=== PATIENT | female | born 1955 | race African-American/Black ===

== ENCOUNTER 2022-07-27 07:42 | Inpatient (IN) ==
[2022-07-27 08:23] LABS: Basophils % 0.3 % (0.0-0.8); Eosinophils % 0.1 % (0.00-10.9); Hematocrit 37.1 VOL% (35.7-47.0); Immature Granulocytes % 0.3 %; Immature Granulocytes Absolute 0.04 #; Lymphocytes # 1.9 10*3/uL (1.4-4.0); Lymphocytes % 16.1 % (21.3-54.2); Mean Corpuscular Volume 81.2 FL (87-102); Mean Platelet Volume 10.4 FL (9.6-12.0); Monocytes # 0.8 10*3/uL (0.11-0.8); Monocytes % 6.8 % (1.7-12.7); Neutrophils % 76.4 % (38.7-73.9); Platelet Count 283 T/CUMM (130-400); Red Blood Count 4.57 MC/CUMM (3.8-5.5); Red Cell Distribution Width 13.5 % (9.3-17.3); White Blood Count 11.6 T/CUMM (4-12)
[2022-07-27 08:37] LABS: Albumin 3.4 G/DL (3.4-5.0); Calcium 9.9 MG/DL (8.5-10.1); Osmolality,Calculated 268.1 MOS/KG (273-304); Potassium 2.8 MMOL/L (3.5-5.1); Total Protein 8.5 G/DL (6.4-8.2)
[2022-07-27 08:46] LABS: Bacteria,Urine Occasional /HPF (Few); Mucus,Urine Many /LPF (Occasional); RBC,Urine 2 /HPF (0-4); Squamous Epithelial Cell,Urine Few /HPF (0-10)
[2022-07-27 08:47] LABS: Urine Appearance Clear (Clear); Urine Color Yellow (Yellow)
[2022-07-27 08:48] LABS: Bilirubin,Urine Moderate mg/dL (Negative); Blood, Urine Small mg/dL (Negative); Glucose,Urine (UA) Negative (Negative); Ketones,Urine 40 mg/dL (Negative); Nitrite,Urine Negative (Negative); Protein,Urine 30 mg/dL (Negative)
[2022-07-27] MEDS ORDERED: POTASSIUM CHLORIDE 20 MEQ TABLET PO STA (09:02)
[2022-07-27] MEDS ORDERED: ACETAMINOPHEN 325 MG TABLET PO PRN (09:48)
[2022-07-27] MEDS ORDERED: DEXTROSE 10% 250 ML BAG IV PRN (09:48)
[2022-07-27] MEDS ORDERED: GLUCAGON 1 MG VIAL IM PRN (09:48)
[2022-07-27] MEDS ORDERED: NICOTINE 21 MG/24 HR PATCH TRANSDERM PRN (10:07)
[2022-07-27] MEDS: SODIUM CHLORIDE 0.9% 1,000 ML IV SCH (11:37)
[2022-07-27] MEDS: MAGNESIUM SULF RIDER 2 GM/50 ML PREMIX IV SCH ×2 (12:40→14:51)
[2022-07-27] MEDS ORDERED: POLYETHYLENE GLYCOL POWDER 255 GM BOTTLE PO ONE (18:00)
[2022-07-27] MEDS: ONDANSETRON 4 MG/2 ML VIAL IV PRN (21:33)
[2022-07-28] MEDS: SODIUM CHLORIDE 0.9% 1,000 ML IV SCH ×3 (02:39→18:14)
[2022-07-28] MEDS ORDERED: POLYETHYLENE GLYCOL POWDER 255 GM BOTTLE PO ONE (05:00)
[2022-07-28 06:41] LABS: Basophils % 0.3 % (0.0-0.8); Hematocrit 32.6 VOL% (35.7-47.0); Hemoglobin 11.6 GM/DL (12.0-16.0); Immature Granulocytes % 0.4 %; Immature Granulocytes Absolute 0.04 #; Lymphocytes # 1.4 10*3/uL (1.4-4.0); Lymphocytes % 12.8 % (21.3-54.2); Mean Corpuscular HGB Conc 35.6 GM/DL (32-36); Mean Corpuscular Volume 80.5 FL (87-102); Mean Platelet Volume 10.9 FL (9.6-12.0); Monocytes # 0.8 10*3/uL (0.11-0.8); Monocytes % 7.8 % (1.7-12.7); Neutrophils % 78.7 % (38.7-73.9); Platelet Count 243 T/CUMM (130-400); Red Blood Count 4.05 MC/CUMM (3.8-5.5); Red Cell Distribution Width 13.5 % (9.3-17.3); White Blood Count 10.6 T/CUMM (4-12)
[2022-07-28 06:51] LABS: INR 1.1; PT Patient Result 11.9 SECS (10.1-12.1)
[2022-07-28 07:00] LABS: Albumin 2.9 G/DL (3.4-5.0); Osmolality,Calculated 274.7 MOS/KG (273-304); Potassium 2.8 MMOL/L (3.5-5.1); Total Protein 7.7 G/DL (6.4-8.2)
[2022-07-28] MEDS: POTASSIUM CHLORIDE RIDER 10 MEQ/100 ML PREMIX IV PRN (08:24)
[2022-07-28] MEDS ORDERED: POTASSIUM CHLORIDE INJ 50 MEQ in SODIUM CHLORIDE 0.9% 500 ML IV ONE (09:00)
[2022-07-28] MEDS: PANTOPRAZOLE 40 MG TABLET PO SCH (10:04)
[2022-07-28] MEDS: LACTATED RINGERS 1,000 ML IV SCH (12:20)
[2022-07-28] MEDS ORDERED: PHENYLEPHRINE 1 MG/10 ML SYRINGE IV ONE (12:35)
[2022-07-28] MEDS ORDERED: LIDOCAINE 2% 5 ML VIAL ONE (12:35)
[2022-07-28] MEDS ORDERED: propofoL 200 MG/20 ML VIAL IV ONE (12:35)
[2022-07-28] MEDS: HYDROmorphone 1 MG/1 ML SYRINGE IV PRN (19:33)
[2022-07-28] MEDS: ONDANSETRON 4 MG/2 ML VIAL IV PRN (19:35)
[2022-07-29] MEDS: HYDROmorphone 1 MG/1 ML SYRINGE IV PRN (02:40)
[2022-07-29] MEDS: SODIUM CHLORIDE 0.9% 1,000 ML IV SCH ×2 (03:57→18:25)
[2022-07-29] MEDS: PANTOPRAZOLE 40 MG TABLET PO SCH (09:10)
[2022-07-29] MEDS: LACTATED RINGERS 1,000 ML IV SCH (16:20)
[2022-07-30] MEDS: SODIUM CHLORIDE 0.9% 1,000 ML IV SCH ×2 (00:29→07:51)
[2022-07-30 05:33] LABS: Basophils % 0.3 % (0.0-0.8); Hematocrit 29.9 VOL% (35.7-47.0); Hemoglobin 10.6 GM/DL (12.0-16.0); Immature Granulocytes % 0.5 %; Immature Granulocytes Absolute 0.06 #; Lymphocytes # 1.2 10*3/uL (1.4-4.0); Lymphocytes % 9.7 % (21.3-54.2); Mean Corpuscular HGB Conc 35.5 GM/DL (32-36); Mean Corpuscular Volume 80.8 FL (87-102); Mean Platelet Volume 10.6 FL (9.6-12.0); Monocytes # 0.9 10*3/uL (0.11-0.8); Monocytes % 7.4 % (1.7-12.7); Neutrophils % 82.1 % (38.7-73.9); Platelet Count 234 T/CUMM (130-400); Red Cell Distribution Width 13.1 % (9.3-17.3); White Blood Count 12.4 T/CUMM (4-12)
[2022-07-30 05:52] LABS: Calcium 8.8 MG/DL (8.5-10.1); Osmolality,Calculated 269.8 MOS/KG (273-304); Potassium 2.9 MMOL/L (3.5-5.1)
[2022-07-30 06:03] LABS: Albumin 2.6 G/DL (3.4-5.0); Bilirubin,Total 0.9 MG/DL (0.20-1.00); Calcium 8.6 MG/DL (8.5-10.1); Potassium 2.9 MMOL/L (3.5-5.1); Total Protein 7.1 G/DL (6.4-8.2)
[2022-07-30] MEDS: POTASSIUM CHLORIDE RIDER 10 MEQ/100 ML PREMIX IV PRN ×3 (06:04→07:42)
[2022-07-30] MEDS: LACTATED RINGERS 1,000 ML IV SCH (07:50)
[2022-07-30] MEDS ORDERED: fentaNYL 250 MCG/5 ML VIAL ONE (08:00)
[2022-07-30] MEDS ORDERED: ETOMIDATE 40 MG/20 ML VIAL IV ONE (08:00)
[2022-07-30] MEDS ORDERED: ROCURONIUM 50 MG/5 ML VIAL IV ONE (08:00)
[2022-07-30] MEDS ORDERED: SEVOFLURANE 1 UNIT/15 MINUTE INH ONE (08:00)
[2022-07-30] MEDS ORDERED: SUCCINYLCHOLINE 200 MG/10 ML VIAL ONE (08:00)
[2022-07-30] MEDS ORDERED: LIDOCAINE 2% 5 ML VIAL ONE (08:00)
[2022-07-30] MEDS ORDERED: propofoL 200 MG/20 ML VIAL IV ONE (08:00)
[2022-07-30] MEDS ORDERED: PHENYLEPHRINE 1 MG/10 ML SYRINGE IV ONE ×2 (08:00→10:18)
[2022-07-30] MEDS ORDERED: MIDAZOLAM 2 MG/2 ML VIAL ONE (08:00)
[2022-07-30] MEDS: PANTOPRAZOLE 40 MG TABLET PO SCH (08:05)
[2022-07-30] MEDS ORDERED: LIDOCAINE 1% 5 ML VIAL ONE (08:07)
[2022-07-30] MEDS ORDERED: DEXAMETHASONE 4 MG/1 ML VIAL ONE (08:07)
[2022-07-30] MEDS ORDERED: ROPIVACAINE 0.5% 30 ML VIAL ONE (08:07)
[2022-07-30] MEDS ORDERED: ACETAMINOPHEN INJ 1,000 MG/100 ML VIAL IV ONE (10:07)
[2022-07-30] MEDS ORDERED: SUGAMMADEX 200 MG/2 ML VIAL IV ONE (10:45)
[2022-07-30] MEDS ORDERED: MAGNESIUM SULF RIDER 4 GM/100 ML PREMIX IV ONE (11:00)
[2022-07-30] MEDS ORDERED: HYDROmorphone 1 MG/1 ML SYRINGE ONE (11:05)
[2022-07-30 11:35] LABS: Mucus,Urine Occasional /LPF (Occasional); RBC,Urine 2 /HPF (0-4)
[2022-07-30 11:36] LABS: Bilirubin,Urine Negative (Negative); Blood, Urine Trace mg/dL (Negative); Glucose,Urine (UA) Negative (Negative); Ketones,Urine 80 mg/dL (Negative); Nitrite,Urine Negative (Negative); Protein,Urine Negative (Negative); Urine Appearance Clear (Clear); Urine Color Yellow (Yellow); Urine Urobilinogen 0.2 eU/dL (<2.0); Urine pH 6.5 (4.5-8.0)
[2022-07-30] MEDS: POTASSIUM CHLORIDE 20 MEQ TABLET PO SCH (12:54)
[2022-07-30] MEDS: HYDROmorphone 1 MG/1 ML SYRINGE IV PRN ×2 (12:55→20:05)
[2022-07-30] MEDS: SODIUM CHLOR 0.9% KCL 40 MEQ 40 MEQ/1,000 ML BAG IV SCH (12:55)
[2022-07-30] MEDS: ONDANSETRON 4 MG/2 ML VIAL IV PRN (12:57)
[2022-07-31] MEDS: ONDANSETRON 4 MG/2 ML VIAL IV PRN ×3 (02:13→16:48)
[2022-07-31] MEDS: HYDROmorphone 1 MG/1 ML SYRINGE IV PRN ×3 (02:14→16:50)
[2022-07-31] MEDS: SODIUM CHLOR 0.9% KCL 40 MEQ 40 MEQ/1,000 ML BAG IV SCH ×2 (02:54→15:48)
[2022-07-31 05:16] LABS: Basophils % 0.1 % (0.0-0.8); Hematocrit 31.9 VOL% (35.7-47.0); Hemoglobin 11.3 GM/DL (12.0-16.0); Immature Granulocytes % 0.4 %; Immature Granulocytes Absolute 0.07 #; Lymphocytes # 1.4 10*3/uL (1.4-4.0); Lymphocytes % 8.4 % (21.3-54.2); Mean Corpuscular HGB Conc 35.4 GM/DL (32-36); Mean Platelet Volume 10.8 FL (9.6-12.0); Monocytes # 1.1 10*3/uL (0.11-0.8); Monocytes % 7.1 % (1.7-12.7); Platelet Count 280 T/CUMM (130-400); Red Blood Count 3.94 MC/CUMM (3.8-5.5); White Blood Count 16.1 T/CUMM (4-12)
[2022-07-31 05:29] LABS: Calcium 8.3 MG/DL (8.5-10.1); Osmolality,Calculated 270.8 MOS/KG (273-304); Potassium 4.3 MMOL/L (3.5-5.1)
[2022-07-31] MEDS: PANTOPRAZOLE 40 MG TABLET PO SCH (08:56)
[2022-07-31] MEDS: POTASSIUM CHLORIDE 20 MEQ TABLET PO SCH (08:56)
[2022-07-31] MEDS ORDERED: guaiFENesin/DM ER 600-30 MG TABLET PO PRN (18:25)
[2022-08-01] MEDS ORDERED: ALPRAZolam 0.5 MG TABLET PO ONE (03:45)
[2022-08-01] MEDS: SODIUM CHLOR 0.9% KCL 40 MEQ 40 MEQ/1,000 ML BAG IV SCH ×2 (04:43→17:20)
[2022-08-01 05:46] LABS: Basophils % 0.1 % (0.0-0.8); Hematocrit 32.1 VOL% (35.7-47.0); Hemoglobin 11.3 GM/DL (12.0-16.0); Immature Granulocytes % 0.4 %; Immature Granulocytes Absolute 0.06 #; Lymphocytes # 1.3 10*3/uL (1.4-4.0); Lymphocytes % 9.9 % (21.3-54.2); Mean Corpuscular HGB Conc 35.2 GM/DL (32-36); Mean Corpuscular Volume 81.3 FL (87-102); Mean Platelet Volume 10.4 FL (9.6-12.0); Monocytes % 7.2 % (1.7-12.7); Neutrophils % 82.4 % (38.7-73.9); Platelet Count 289 T/CUMM (130-400); Red Blood Count 3.95 MC/CUMM (3.8-5.5); Red Cell Distribution Width 13.1 % (9.3-17.3); White Blood Count 13.5 T/CUMM (4-12)
[2022-08-01 06:14] LABS: Calcium 9.1 MG/DL (8.5-10.1); Osmolality,Calculated 269.8 MOS/KG (273-304); Potassium 4.4 MMOL/L (3.5-5.1)
[2022-08-01] MEDS ORDERED: MAGNESIUM SULF RIDER 4 GM/100 ML PREMIX IV ONE (08:39)
[2022-08-01] MEDS ORDERED: ALBUTEROL/IPRATROPIUM 3 ML NEB RESP TX PRN (08:43)
[2022-08-01] MEDS ORDERED: CLORAZEPATE 3.75 MG TABLET PO SCH (09:30)
[2022-08-01] MEDS: POTASSIUM CHLORIDE 20 MEQ TABLET PO SCH (09:43)
[2022-08-01] MEDS: PANTOPRAZOLE 40 MG TABLET PO SCH (09:43)
[2022-08-01] MEDS: cefTRIAXone 1,000 MG in SODIUM CHLORIDE 0.9% 100 ML IV SCH (09:44)
[2022-08-01] MEDS: AZITHROMYCIN INJ 500 MG in SODIUM CHLORIDE 0.9% 250 ML IV SCH (09:45)
[2022-08-01] MEDS: carvediloL 6.25 MG TABLET PO SCH ×2 (10:43→20:04)
[2022-08-01] MEDS: ONDANSETRON 4 MG/2 ML VIAL IV PRN (13:53)
[2022-08-01] MEDS: HYDROmorphone 1 MG/1 ML SYRINGE IV PRN ×2 (13:53→19:43)
[2022-08-01] MEDS: buPROPion 100 MG TABLET PO SCH (20:04)
[2022-08-01] MEDS: CLORAZEPATE 3.75 MG TABLET PO SCH (20:04)
[2022-08-01] MEDS ORDERED: CITALOPRAM 20 MG TABLET PO SCH (21:00)
[2022-08-02] MEDS ORDERED: MAGNESIUM SULF RIDER 4 GM/100 ML PREMIX IV PRN (00:01)
[2022-08-02] MEDS ORDERED: MAGNESIUM SULF RIDER 2 GM/50 ML PREMIX IV PRN (00:01)
[2022-08-02 05:42] LABS: Basophils % 0.4 % (0.0-0.8); Eosinophils % 0.4 % (0.00-10.9); Hematocrit 31.3 VOL% (35.7-47.0); Hemoglobin 10.9 GM/DL (12.0-16.0); Immature Granulocytes % 0.5 %; Immature Granulocytes Absolute 0.05 #; Lymphocytes # 1.3 10*3/uL (1.4-4.0); Lymphocytes % 11.8 % (21.3-54.2); Mean Corpuscular HGB Conc 34.8 GM/DL (32-36); Mean Corpuscular Volume 81.3 FL (87-102); Mean Platelet Volume 10.3 FL (9.6-12.0); Monocytes # 0.9 10*3/uL (0.11-0.8); Monocytes % 7.9 % (1.7-12.7); Platelet Count 288 T/CUMM (130-400); Red Blood Count 3.85 MC/CUMM (3.8-5.5); Red Cell Distribution Width 13.2 % (9.3-17.3); White Blood Count 10.9 T/CUMM (4-12)
[2022-08-02 06:11] LABS: Calcium 9.1 MG/DL (8.5-10.1); Potassium 4.4 MMOL/L (3.5-5.1)
[2022-08-02] MEDS: SODIUM CHLOR 0.9% KCL 40 MEQ 40 MEQ/1,000 ML BAG IV SCH ×2 (07:03→23:38)
[2022-08-02] MEDS: cefTRIAXone 1,000 MG in SODIUM CHLORIDE 0.9% 100 ML IV SCH (08:42)
[2022-08-02] MEDS: PANTOPRAZOLE 40 MG TABLET PO SCH (08:42)
[2022-08-02] MEDS: POTASSIUM CHLORIDE 20 MEQ TABLET PO SCH (08:42)
[2022-08-02] MEDS: CLORAZEPATE 3.75 MG TABLET PO SCH ×2 (08:43→20:45)
[2022-08-02] MEDS: carvediloL 6.25 MG TABLET PO SCH ×2 (08:43→20:45)
[2022-08-02] MEDS: buPROPion 100 MG TABLET PO SCH ×2 (08:49→20:45)
[2022-08-02] MEDS: AZITHROMYCIN INJ 500 MG in SODIUM CHLORIDE 0.9% 250 ML IV SCH (08:55)
[2022-08-02] MEDS: HYDROmorphone 1 MG/1 ML SYRINGE IV PRN ×2 (10:36→17:18)
[2022-08-03 05:10] LABS: Basophils # 0.1 10*3/uL (0.0-0.2); Basophils % 0.5 % (0.0-0.8); Eosinophils # 0.1 10*3/uL (0.0-0.87); Eosinophils % 0.5 % (0.00-10.9); Hematocrit 35.3 VOL% (35.7-47.0); Hemoglobin 12.3 GM/DL (12.0-16.0); Immature Granulocytes % 0.4 %; Immature Granulocytes Absolute 0.05 #; Lymphocytes # 1.8 10*3/uL (1.4-4.0); Lymphocytes % 16.1 % (21.3-54.2); Mean Corpuscular HGB Conc 34.8 GM/DL (32-36); Mean Corpuscular Volume 81.3 FL (87-102); Mean Platelet Volume 9.9 FL (9.6-12.0); Monocytes # 0.8 10*3/uL (0.11-0.8); Monocytes % 6.8 % (1.7-12.7); Neutrophils % 75.7 % (38.7-73.9); Platelet Count 334 T/CUMM (130-400); Red Blood Count 4.34 MC/CUMM (3.8-5.5); Red Cell Distribution Width 13.3 % (9.3-17.3); White Blood Count 11.2 T/CUMM (4-12)
[2022-08-03 05:36] LABS: Calcium 9.9 MG/DL (8.5-10.1); Osmolality,Calculated 269.8 MOS/KG (273-304); Potassium 4.4 MMOL/L (3.5-5.1)
[2022-08-03] MEDS: POTASSIUM CHLORIDE 20 MEQ TABLET PO SCH (09:19)
[2022-08-03] MEDS: PANTOPRAZOLE 40 MG TABLET PO SCH (09:19)
[2022-08-03] MEDS: CLORAZEPATE 3.75 MG TABLET PO SCH (09:19)
[2022-08-03] MEDS: carvediloL 6.25 MG TABLET PO SCH (09:19)
[2022-08-03] MEDS: buPROPion 100 MG TABLET PO SCH (09:20)
[2022-08-03] MEDS: cefTRIAXone 1,000 MG in SODIUM CHLORIDE 0.9% 100 ML IV SCH (09:21)
[2022-08-03] MEDS: SODIUM CHLOR 0.9% KCL 40 MEQ 40 MEQ/1,000 ML BAG IV SCH (10:43)
[2022-08-03] MEDS ORDERED: AZITHROMYCIN 250 MG TABLET PO SCH (11:00)
[2022-08-03 12:56] VITALS: BP 127/74
== END 2022-08-03 15:28 | disposition home health service (06) | DRG 331 ==
LOC: N.ED 07:42 → N.EDINP 09:44 → SUATTDRO 09:44 → N.5E 15:58
PROVIDERS: ADMIT Internal Medicine; ATTEND Internal Medicine